=== PATIENT | male | born 1955 | race Hispanic/Latino ===

== ENCOUNTER → 2018-10-21 | Outpatient (CLI) | payer OTHER ==
--- NOTE | 2018-10-21 13:25 | Diagnostic Imaging Report ---
EXAM: HEEL LT, HEEL RT DATE: 10/21/2018 12:43 PM INDICATION: Bilateral heel pain COMPARISON: None FINDINGS: Right calcaneus: 2 views of the right calcaneus shows no displaced fracture, destructive lesion or dislocation. Plantar and posterior calcaneal enthesophytes are present. Soft tissues unremarkable. Left calcaneus: 2 views of the left calcaneus show no displaced fracture, destructive lesion or dislocation. Plantar and posterior calcaneal enthesophytes are present. Soft tissues unremarkable. IMPRESSION: No acute bony abnormality. Bilateral calcaneal enthesophytes are present. Signed by: Dr. Fernie Graham M.D. on 10/21/2018 1:22 PM
== END ==
LOC: RAD 12:24
PROVIDERS: ATTEND Family Medicine
DX: M79.672 Pain in left foot (principal); M79.671 Pain in right foot; M89.8X7 Other specified disorders of bone, ankle and foot